=== PATIENT | female | born 1970 | race Caucasian/White ===

== ENCOUNTER → 2021-06-05 | Outpatient (CLI) | payer OTHER, BC ==
[2021-06-05 12:49] LABS: BASO % 0.7 % (0.0-1.0); EOS # 0.2 10^3/uL (0.0-0.5); EOS % 3.7 % (0.0-3.0); HEMATOCRIT 41.4 % (36.0-47.0); HEMOGLOBIN 13.4 g/dl (12.0-15.5); LYMPH # 1.5 10^3/uL (1.5-5.0); LYMPH % 34.9 % (24.0-44.0); MEAN CORPUSCULAR HEMOGLOBIN 30.4 pg (27.0-33.0); MEAN CORPUSCULAR HGB CONC 32.4 g/dl (32.0-36.5); MEAN CORPUSCULAR VOLUME 93.9 fl (80.0-96.0); MONO # 0.3 10^3/uL (0.0-0.8); MONO % 6.2 % (2.0-8.0); NEUTROPHILS # 2.4 10^3/uL (1.5-8.5); PLATELET COUNT, AUTOMATED 314 10^3/uL (150-450); RED BLOOD COUNT 4.41 10^6/uL (4.00-5.40); WHITE BLOOD COUNT 4.4 10^3/uL (4.0-10.0)
[2021-06-05 13:13] LABS: ALBUMIN 3.9 GM/DL (3.2-5.2); ALT/SGPT 21 U/L (12-78); BILIRUBIN,TOTAL 0.4 MG/DL (0.2-1.0); BLOOD UREA NITROGEN 16 MG/DL (7-18); CALCIUM LEVEL 9.3 MG/DL (8.5-10.1); CARBON DIOXIDE LEVEL 31 MEQ/L (21-32); CHLORIDE LEVEL 105 MEQ/L (98-107); CHOLESTEROL LEVEL 310 MG/DL (<200); CREATININE FOR GFR 0.75 MG/DL (0.55-1.30); GLOMERULAR FILTRATION RATE > 60.0 (>51); GLUCOSE, FASTING 90 MG/DL (70-100); HDL CHOLESTEROL 126 MG/DL (>40); LDL CHOLESTEROL 172 MG/DL (<100); NON-HDL-C 184 MG/DL; POTASSIUM SERUM 4.6 MEQ/L (3.5-5.1); SODIUM LEVEL 141 MEQ/L (136-145); TOTAL PROTEIN 7.3 GM/DL (6.4-8.2); TRIGLYCERIDES LEVEL 59 MG/DL (<150)
== END ==
LOC: M LAB 11:44
PROVIDERS: ATTEND Nurse Practitioner Family
DX: Z00.00 Encounter for general adult medical examination without abnormal findings (principal)

== ENCOUNTER → 2021-09-29 | Outpatient (CLI) | payer BC ==
[~2021-09-29] MED LIST: VITMTA PO
== END ==
LOC: M LABSMTC 09:47
PROVIDERS: ATTEND Anesthesiology
DX: Z01.812 Encounter for preprocedural laboratory examination (principal); Z20.822 Contact with and (suspected) exposure to COVID-19

== ENCOUNTER 2021-10-03 08:40 | Day surgery (SDC) | payer BC ==
[~2021-10-03] VITALS: Ht 166.4 cm; Wt 71.2 kg
[~2021-10-03 08:40] MED LIST changes: +NS 1,000 ML IV ONE
--- OUTSIDE RECORDS SUMMARY | 2021-10-03 08:44 | CCD | Continuity of Care Document ---
Author Author Emily SAEED MD Organization Unknown Address [address] [place] [address] Phone [phone] Care Team Providers Care Pipe Crew Foreman Name Role Phone Ro Barroso AUTM [phone] Problems Description No Information Available Social History Type Date Description Comments Sex Unknown Tobacco Use Start: Unknown Non-smoker, Non-drinker, Non-piper g User Smoking Status Reviewed: 08/22/21 Non-smoker, Non-drinker, Non- drug User Tobacco Use Start: Unknown Patient has never smoked Allergies and adverse reactions Description No Information Available Medications Description No Information Available Immunizations Description No Information Available Vital Signs Date Vital Result Comment 08/22/2021 10:31am BP Systolic 118 mmHg BP Diastolic 78 mmHg Height 65.50 inches 5'5.50" Weight 158.00 lb BMI (Body Mass Index) 25.9 kg/m2 BSA (Body Surface Area) 1.80 m2 Results Description No Information Available Procedures Date Code Description Status 08/22/2021 99532 Preventive Visit New 40-64 Yrs C ompleted Medical Devices Description No Information Available Encounters Type Date Location Provider Dx Diagnosis Office Visit 08/22/2021 10:15a [facility] train director Saumya Saeed MD Z0 1.419 Encntr for lute packer or applier exam (general) (routine) w/o abn findings Z12.4 Encounter for screening for malignant neoplasm of cervix Z12.39 Encounter for oth screening for malignant neoplasm of breast N39.3 Stress incontinence (female) (male) Assessments Date Code Description Provider 08/22/2021 Z01.419 Encounter for gyneco logical examination (general) (routine) without abnormal findings Saumya Saeed MD 08/22/2021 Z12.4 Encounter for screening for zoya gnant neoplasm of cervix Saumya Saeed MD 08/22/2021 Z12.39 Encounter for other screening for malignant neoplasm of breast Saumya Saeed MD 08/22/2021 N39.3 Stress incontinence (female) (ma le) Saumya Saeed MD Plan of Treatment Future Appointment(s):* 08/26/2022 2:00 pm - Saumya Saeed MD at [facility] train director 08/22/2021 - Saumya Saeed MD* Z01.419 Encounter for gynecological examination (general) (routine) without abnormal findings * Z12.4 Encounter for screening for malignant neoplasm of cervix* New Labs:* Thinprep W/Reflex HR HPV If Asc-US, Ordered: 08/22/21 * Z12.39 Encounter for other screening for malignant neoplasm of breast* New Xrays:* Mammography, Screening, Bilateral, Ordered: 08/22/21 * N39.3 Stress incontinence (female) (male) Functional Status Description No Information Available Mental Status Description No Information Available Referrals Description No Information Available
--- OUTSIDE RECORDS SUMMARY | 2021-10-03 08:44 | CCD | Continuity of Care Document ---
Author Author Emily SAEED MD Organization Unknown Address [address] [place] [address] Phone [phone] Care Team Providers Care Sales Trainer Name Role Phone Ro Barroso POSTDOCTORAL RESEARCH FELLOW AUTM [phone] Problems Description No Information Available Social History [...] BSA (Body Surface Area) 1.80 m2 Results Test Acquired Date Facility Test Result H/L Range Note Thinprep W/Reflex HR HPV If Asc-US 08/22/2021 [facility] TP Reflex HPV [facility] Normal Normal 1 TP Reflex HPV [facility] SEE IMAGE 1 SPECIME N PART A. Cervical, Endocervical, ThinPrep Pap (Juvenile Corrections Officer) CYTOLOGY HX-------- Date of Last Menstrual Period: 07/27/21 FINAL DIAGNOSIS---- INTERPRETATION: Negative for Intraepithelial Lesion or Malignancy. SPECIMEN ADEQUACY:Satisfactory for evaluation. Endocervical/transformation zone component present. ADDITIONAL FINDINGS:Atrophic pattern. Procedures Date Code Description Status 08/22/2021 93573 Preventive Visit New 40-64 Yrs C ompleted Medical Devices Description No Information Available Encounters Type Date Location Provider Dx Diagnosis Office Visit 08/22/2021 10:15a [facility] relief pharmacist Saumya Saeed MD Z0 1.419 Encntr for public area attendant exam (general) (routine) w/o abn findings Z12.4 [...] 2:00 pm - Saumya Saeed MD at [facility] relief pharmacist 08/22/2021 - Saumya Saeed MD* Z01.419 Encounter for gynecological examination (general) (routine) without abnormal findings * Z12.4 Encounter for screening for malignant neoplasm of cervix * Z12.39 Encounter for other screening for malignant neoplasm of breast* New Xrays:* Mammography, Screening, Bilateral, Ordered: 08/22/21 * N39.3 Stress incontinence (female) (male) Functional Status Description No Information Available Mental Status Description No Information Available Referrals Description No Information Available
--- OUTSIDE RECORDS SUMMARY | 2021-10-03 08:44 | CCD ---
Author Author [facility] Organization [facility] Address Unknown Phone Unavailable Care Team Providers Care Technical Support Analyst Name Role Phone Crista Estrada Unavailable PROBLEMS Type Condition ICD9-CM Code [id number] Code Onset Dates Condition S tatus W/U Status Risk SNOMED Code Notes Problem Breast lump on right side at 4 o'clock position 611.72 Active confirmed 40908402 Problem Urinary, incontinence, stress female 625.6 Act tennille confirmed 21085931 ALLERGIES Allergen (clinical drug ingredient) Drug/Non Drug Allergy do cumented on EMR Reaction Allergy Type Onset Date Status Hay Runny nose, watery eyes, wheezing Non Drug Rene rgy Active ENCOUNTERS from 1969 to 2021-09-23 Encounter Location Date Provider Diagnosis [address] [phone] [place] [address] Sep, Crista Estrada Breast mass, left N63.20 IMMUNIZATIONS Vaccine Route Administration Date Status COVID-19 dose #2 given elsewhere Unspecified ID Intradermal Dec Administered COVID-19 dose #1 given elsewhere Unspecified ID Intradermal Dec 27, 2020 Administered SOCIAL HISTORY Tobacco Use: Social History Observation Description Date Details (start date - stop date) never smoker Sex Assigned At : Social History Observation Description Sex Assigned At Unknown Language: Question Answer Notes Languages spoken: Kuwaiti Sexual Hx: Question Answer Notes Had sex in the last 12 months (vaginal, oral, or anal)? Yes LMP: 04/24/2021 Have you ever had an STD? No with Men only Use protection? No Alcohol Screening: Question Answer Notes Did you have a drink containing alcohol in the past year? Ye s Points 2 Interpretation Negative How often did you have six or more drinks on one occas ion in the past year? Never (0 points) How many drinks did you have on a typica l day when you were drinking in the past year? 1 or 2 (0 points) How often did you have a drink containing alcohol in t he past year? Two to four times a month (2 points) Tobacco Use: Question Answer Notes Are you a: never smoker REASON FOR REFERRAL No Information VITAL SIGNS Weight 161.5 lbs Sep, Weight-kg 73.26 kg Sep, Height 66 in Sep, BMI 26.06 kg/m2 Sep, Heart Rate 91 /min Sep, Respiratory Rate 18 /min Sep, Temperature 96.6 degrees Fahrenheit Sep, Oximetry 97 Sep, Blood pressure systolic 114 mm Hg Sep, Blood pressure diastolic 68 mm Hg Sep, MEDICATIONS Medication SIG (Take, Route, Frequency, Duration) Notes Start Da te End Date Status Multivitamin - 1 tablet Orally Once a day for 30 day(s) Active PROCEDURES No Information RESULTS No Results REASON FOR VISIT lump left axilla MEDICAL (GENERAL) HISTORY Type Description Date Surgical History eye surgery x 2 Surgical History right breast cyst aspriation Goals Section No Information Health Concerns No Information MEDICAL EQUIPMENT No Information MENTAL STATUS No Information FUNCTIONAL STATUS No Information ASSESSMENTS Encounter Date Diagnosis Assessment Notes Treatment Notes Treatm ent Clinical Notes Sep, Breast mass, left (ICD-10 - N63.20) Will schedule mammo; pt agrees with plan Sep, Other Total time irma ng for the patient on the day of the encounter was 20 min PLAN OF TREATMENT Treatment Notes Assessment Notes Clinical Notes Breast mass, left Will schedule mammo; pt agrees with plan Pending Tests Test Name Order Date [facility] DIAGNOSTIC BILAT MAMMO (Ultrasound if indicated) W KOMAL WW 2021-09-18 Insurance Providers Payer Name Payer Address Payer Phone Insured Name Patient Relati onship to Insured Coverage Start Date Coverage End Date [employer] PPO [address] [address] LEONELA MARIEE self
--- OUTSIDE RECORDS SUMMARY | 2021-10-03 08:44 | CCD ---
Author Author [facility] Organization [facility] Address Unknown Phone Unavailable Care Team Providers Care Plant Engineer Name Role Phone Dharmesh Ro Unavailable PROBLEMS Type Condition ICD9-CM Code [id number] Code Onset Dates Condition S tatus W/U Status Risk SNOMED Code Notes Problem Breast lump on right side at 4 o'clock position 611.72 Active confirmed 59041874 Problem Urinary, incontinence, stress female 625.6 Act tennille confirmed 12178147 ALLERGIES Allergen (clinical drug ingredient) Drug/Non Drug Allergy do cumented on EMR Reaction Allergy Type Onset Date Status Hay Runny nose, watery eyes, wheezing Non Drug Rene rgy Active ENCOUNTERS from 1970 to 2021-09-17 Encounter Location Date Provider Diagnosis [address] [phone] [place] [address] Sep, Ro Barroso IMMUNIZATIONS Vaccine Route Administration Date Status COVID-19 dose #2 given elsewhere Unspecified ID Intradermal Dec Administered COVID-19 dose #1 given elsewhere Unspecified ID Intradermal Dec 27, 2020 Administered SOCIAL HISTORY Tobacco Use: Social History Observation Description Date Details (start date - stop date) never smoker Sex Assigned At : Social History Observation Description Sex Assigned At Unknown Language: Question Answer Notes Languages spoken: Mongolian Sexual Hx: Question Answer Notes Had sex [...] REASON FOR REFERRAL No Information VITAL SIGNS No information MEDICATIONS Medication SIG (Take, Route, Frequency, Duration) [...] No Information FUNCTIONAL STATUS No Information ASSESSMENTS No Information PLAN OF TREATMENT Next Appt Details Provider Name:Crista Estrada, 2020-11 03:30:00 PM, [facility] [phone], [place], [address], Insurance Providers Payer Name Payer Address Payer Phone Insured Name Patient Relati onship to Insured Coverage Start Date Coverage End Date [employer] PPO [phone] [address] LEONELA MARIEE self
--- OUTSIDE RECORDS SUMMARY | 2021-10-03 08:44 | CCD | Continuity of Care Document ---
Author Author Emily SAEED MD Organization Unknown Address [address] [place] [address] Phone [phone] Care Team Providers Care Data Management Engineer Name Role Phone Ro Barroso AUTM [phone] Problems Description No Information Available Social History [...] Available Procedures Date Code Description Status 08/22/2021 93237 Preventive Visit New 40-64 Yrs C ompleted Medical Devices Description No Information Available Encounters Type Date Location Provider Dx Diagnosis Office Visit 08/22/2021 10:15a [facility] polytechnic registrar Saumya Saeed MD Z0 1.419 Encntr for unix consultant exam (general) (routine) w/o abn findings Z12.4 [...] - Saumya Saeed MD at [facility] polytechnic registrar 08/22/2021 - Saumya Saeed MD* Z01.419 Encounter [...]
--- OUTSIDE RECORDS SUMMARY | 2021-10-03 08:44 | CCD ---
Author Author [facility] Organization [facility] Address Unknown Phone Unavailable Care Team Providers Care Timber Treating Tank Operator Name Role Phone Crista Estrada Unavailable PROBLEMS Type Condition ICD9-CM Code [id number] Code Onset Dates Condition S tatus W/U Status Risk SNOMED Code Notes Problem Breast lump on right side at 4 o'clock position 611.72 Active confirmed 38047425 Problem Urinary, incontinence, stress female 625.6 Act tennille confirmed 29278190 ALLERGIES Allergen (clinical drug ingredient) Drug/Non Drug Allergy do cumented on EMR Reaction Allergy Type Onset Date Status Hay Runny nose, watery eyes, wheezing Non Drug Rene rgy Active ENCOUNTERS from 1970 to 2021-09-19 Encounter Location Date Provider Diagnosis [address] [phone] [place] [address] Sep, Crista Estrada IMMUNIZATIONS Vaccine Route Administration Date Status COVID-19 dose #2 given elsewhere Unspecified ID Intradermal Dec Administered COVID-19 dose #1 given elsewhere Unspecified ID Intradermal Dec 27, 2020 Administered SOCIAL HISTORY Tobacco Use: Social History Observation Description Date Details (start date - stop date) never smoker Sex Assigned At : Social History Observation Description Sex Assigned At Unknown Language: Question Answer Notes Languages spoken: Greenlandic Sexual Hx: Question Answer Notes Had sex [...] Information RESULTS No Results REASON FOR VISIT No Information MEDICAL (GENERAL) HISTORY Type Description Date Surgical History eye surgery x 2 Surgical History right breast cyst aspriation Goals Section No Information Health Concerns No Information MEDICAL EQUIPMENT No Information MENTAL STATUS No Information FUNCTIONAL STATUS No Information ASSESSMENTS No Information PLAN OF TREATMENT No Information Insurance Providers Payer Name Payer Address Payer Phone Insured Name Patient Relati onship to Insured Coverage Start Date Coverage End Date [employer] PPO [id number] [address] LEONELA MARIEE self
--- OUTSIDE RECORDS SUMMARY | 2021-10-03 08:45 | CCD ---
Author Author [facility] Organization [facility] Address Unknown Phone Unavailable Care Team Providers Care Wireless Cellular Technician Name Role Phone Pura SAEED MD Unavailable Unavailable SAEED, Pura BYRNE MD Unavailable Unavailable SAEED, L SAUMYA SMALL Unavailable Unavailable SAEED, L SAUMYA SMALL Unavailable Unavailable SAEED, L SAUMYA SMALL Unavailable Unavailable SAEED, L SAUMYA SMALL Unavailable Unavailable SAEED, Pura BYRNE MD Unavailable Unavailable SAEED, L SAUMYA SMALL Unavailable Unavailable SAEED, Pura BYRNE MD Unavailable Unavailable SAEED, L SAUMYA SMALL Unavailable Unavailable SAEED, L SAUMYA SMALL Unavailable Unavailable SAEED, L SAUMYA SMALL Unavailable Unavailable SAEED, L SAUMYA SMALL Unavailable Unavailable SAEED, L SAUMYA SMALL Unavailable Unavailable SAEED, L SAUMYA SMALL Unavailable Unavailable SAEED, Pura BYRNE MD Unavailable Unavailable SAEED, L SAUMYA SMALL Unavailable Unavailable SAEED, L SAUMYA SMALL Unavailable Unavailable SAEED, L SAUMYA SMALL Unavailable Unavailable SAEED, L SAUMYA SMALL Unavailable Unavailable SAEED, L SAUMYA SMALL Unavailable Unavailable SAEED, L SAUMYA SMALL Unavailable Unavailable SAEED, L SAUMYA SMALL Unavailable Unavailable SAEED, L SAUMYA SMALL Unavailable Unavailable SAEED, L SAUMYA SMALL Unavailable Unavailable SAEED, L SAUMYA SMALL Unavailable Unavailable SAEED, L SAUMYA SMALL Unavailable Unavailable SAEED, L SAUMYA SMALL Unavailable Unavailable SAEED, L SAUMYA SMALL Unavailable Unavailable SAEED, L SAUMYA SMALL Unavailable Unavailable SAEED, L SAUMYA MD Unavailable Unavailable SAEED, L SAUMYA MD Unavailable Unavailable SAEED, L SAUMYA MD Unavailable Unavailable SAEED, L SAUMYA MD Unavailable Unavailable SAEED, L SAUMYA MD Unavailable Unavailable SAEED, L SAUMYA MD Unavailable Unavailable SAEED, L SAUMYA MD Unavailable Unavailable SAEED, L SAUMYA MD Unavailable Unavailable SAEED, L SAUMYA MD Unavailable Unavailable SAEED, L SAUMYA MD Unavailable Unavailable SAEED, L SAUMYA MD Unavailable Unavailable SAEED, L SAUMYA MD Unavailable Unavailable SAEED, L SAUMYA MD Unavailable Unavailable SAEED, L SAUMYA MD Unavailable Unavailable SAEED, L SAUMYA MD Unavailable Unavailable Re-disclosure Warning The records that you are about to access may contain information from federally-assisted alcohol or drug abuse programs. If such information is present, then the following federally mandated warning applies: This information has been disclosed to you from records protected by federal confidentiality rules (42 CFR part 2). The federal rules prohibit you from making any further disclosure of this information unless further disclosure is expressly permitted by the written consent of the person to whom it pertains or as otherwise permitted by 42 CFR part 2. A general authorization for the release of medical or other information is NOT sufficient for this purpose. The Federal rules restrict any use of the information to criminally investigate or prosecute any alcohol or drug abuse patient.The records that you are about to access may contain highly sensitive health information, the redisclosure of which is protected by Article 27-F of the [facility] Public Health law. If you continue you may have access to information: Regarding HIV / AIDS; Provided by facilities licensed or operated by the [facility] Office of Mental Health; or Provided by the [facility] Office for People With Developmental Disabilities. If such information is present, then the following [facility] mandated warning applies: This information has been disclosed to you from confidential records which are protected by state law. State law prohibits you from making any further disclosure of this information without the specific written consent of the person to whom it pertains, or as otherwise permitted by law. Any unauthorized further disclosure in violation of state law may result in a fine or retirement sentence or both. A general authorization for the release of medical or other information is NOT sufficient authorization for further disc losure. Family History Family Member Name Family Member Gender Family Member Status Date o f Status Description Data Source(s) Unknown Male Problem [facility] ([facility]) Encounters Encounter Providers Location Date Indications Data Source(s ) Outpatient Attender: SAUMYA SAEED MD ED-IMAGH 09/24 09:11:00 AM EST - 09/24/2021 09:12:00 AM EST Z12.31 [facility] Z12.31 Patient discharged. [place] [address] [address] 09/19/2021 12:00:00 AM EST eCW1 (On license of [facility]) [place] [address] [address] 09/18/2021 12:00:00 AM EST eCW1 (On license of [facility]) [place] [address] [address] 09/17/2021 12:00:00 AM EST eCW1 (On license of [facility]) Outpatient Attender: SAUMYA [facility] [employer] mobile web application developer 10:15:00 AM EDT MEDENT ([facility] SURVEILLANCE TECHNICIAN) [place] [address] [address] 07/01/2021 12:00:00 AM EDT eCW1 (On license of [facility]) Immunizations Vaccine Date Status Description Data Source(s) COVID-19 dose #2 given elsewhere Unspecified 01/24/2021 07:4 5:00 AM EDT completed eCW1 (On license of [facility]) COVID-19 dose #2 given elsewhere Unspecified 01/24/2021 07:4 5:00 AM EDT completed eCW1 (On license of [facility]) COVID-19 dose #2 given elsewhere Unspecified 01/24/2021 07:4 5:00 AM EDT completed eCW1 (On license of [facility]) COVID-19 dose #2 given elsewhere Unspecified 01/24/2021 07:4 5:00 AM EDT completed eCW1 (On license of [facility]) COVID-19 dose #1 given elsewhere Unspecified 12/27/2020 07:4 5:00 AM EST completed eCW1 (On license of [facility]) COVID-19 dose #1 given elsewhere Unspecified 12/27/2020 07:4 5:00 AM EST completed eCW1 (On license of [facility]) COVID-19 dose #1 given elsewhere Unspecified 12/27/2020 07:4 5:00 AM EST completed eCW1 (On license of [facility]) COVID-19 dose #1 given elsewhere Unspecified 12/27/2020 07:4 5:00 AM EST completed eCW1 (On license of [facility]) COVID-19 VACCINE Moderna 12/27/2020 12:00:00 AM EST completed [facility] Vaccine Series Complete: NOThis Data was Submitted to [facility] Via MD.Voice. INFLUENZA VIRUS VACCINE QUADRIVALENT 2019- (6 MOS AN D UP) 08/24/2020 12:00:00 AM EDT completed [facility] Medications Medication Brand Name Start Date Product Form Dose Route Admi nistrative Instructions Pharmacy Instructions Status Indications Reaction Description Data Source(s) Bisacodyl 5 MG Delayed Release Oral Tablet [Dulcolax] Dulcol ax 06/24/2021 12:00:00 AM EDT ORAL active M EDENT ([facility], ) Sutab Sutab 06/24/2021 12:00:00 AM EDT active MEDENT ([facility], ) Insurance Providers Payer name Policy type / Coverage type Policy ID Covered green party ID Covered green party's relationship to weaver Policy Weaver Plan Information [facility] DIST [id number] SP [id number] [facility] [id number] SP [id number] [employer] [place] [id number] daytime caregiver employed [id number] [employer]-BS PPO 306 [id number] SP [id number] [employer] PPO 306 [id number] SP [id number] [employer] [place] PPO 302/307 [id number] SP [id number] [facility] (ms) Commercial [id number] Self [id number] [facility] (pr) Commercial [id number] Self [id number] [facility] DIST [address] SP [id number] [employer]-BS PPO 306 [id number] SP [id number] Problems, Conditions, and Diagnoses Code Display Name Description Problem Type Effective Dates Data Source(s) Z12.39 Encounter for other screening for malign ant neoplasm of breast ENCOUNTER FOR OTH SCREENING FOR MALIGNANT NEOPLASM OF BREAST Diagnosis 09:11:00 AM [facility] Surgeries/Procedures Procedure Description Date Indications Data Source(s) Diagnostic digital breast tomosynthesis, unilateral or bilateral (list separately in addition to g0204 or g0206) 09/24/2021 12:00:00 AM [facility] [address] DX MAMMO INCL CAD BI 09/24/2021 12:00:00 AM [facility] 11541 ULTRASOUND BREAST COMPLETE 09/24/2021 12:00:00 AM [facility] INITIAL PREVENTIVE MEDICINE NEW PATIENT 40-64YRS 08/22 12:00:00 AM EDT MEDENT ([facility]IDEO SURVEILLANCE TECHNICIAN) Results ID Date Data Source [id number] 09/29/2021 09:55:00 AM EST [facility] Name Value Range Interpretation Code Description Data Rosanne rce(s) Supporting Document(s) SARS-CoV-2 (COVID-19) RNA [Presence] in Respiratory specimen by LIDYA with probe detection Not Detected [facility] This lab was ordered by [facility] and reported by [employer] ID Date Data Source [id number] 09/26/2021 02:53:[address] [facility] Imaging Services Department Imaging Report [address], [place] [address] %(RAD)RES..mtdd.print.filter("line") Name: LEONELA MARIEE Carlton : 1970 Age/Sex: 51F Ordering Provider: Saumya Saeed MD Med Rec #: [id number] Reg Status: DEP REF Room #: Date of Service: 09/24/21 Report Number: [id number] cc:MARICARMEN Smiley; Saumya Saeed MD Send Report To: [id number] US/US Breast Lt Complete Reason for exam: LT BREAST LUMP Technique: Whole breast ultrasound including evaluation of all four quadrants and the retroareolar region of the breast(s) was performed. FINDINGS: A s imple-appearing cyst is seen at 10 o'clock measuring 0.3 cm x 0.2 cm x 0.4 cm. There is a hypoechoic area seen at the left axilla that is superficial that appears to be likely a cyst measuring about 0.6 cm x 0.5 cm x 0.5 cm. There is a nonenlarged lymph node at the left axilla measuring 0.8 cm x 0.4 x 1.2 cm. IMPRESSION: Small cysts at left breast. Area that appears to be a cyst superficially at the left axilla at the region of interest. Suggest a six month follow-up of the left breast axilla. OVERALL FINAL ASSESSMENT OF FINDINGS: BIRADS CLASSIFICATION: 3 DESCRIPTION: Probably Benign - Short interval follow-up suggested. REPORT SIGNATURE ON FILE Reported By: Deniz Jefferson MD <Electronically signed by Deniz Jefferson MD> 09/29/21 1222 Dictation Date/Time: 09/24/21 1106 Transcribed Date/Time: 09/26/21 1453 Disease Intervention Specialist: ANGIE Name Value Range Interpretation Code Description Data Rosanne rce(s) Supporting Document(s) ID Date Data Source [id number] 09/26/2021 02:49:[address] [facility] Imaging Services Department Imaging Report [address] [place] [address] Name: LEONELA MARIEE : 1970 Age/Sex: 51F Ordering Provider: Saumya Saeed MD [facility] Rec #: [id number] Date of Service: 09/24/21 Report Number: [id number] cc: MARICARMEN Smiley; Saumya Saeed MD Send Report To: [id number] MAMMO/SHAWN Diagnostic Marko w Darryl CAD Reason for Exam: LT BREAST LUMP Patient States Last CBE: 08-22-21 Is this a follow up exam: N Follow up to: Patient's Pina Model Lifetime risk of developing breast cancer: 12.8%. History of palpable area left axilla. Tomosynthesis was performed in addition to standard mammogram views. FINDINGS: Craniocaudal and oblique views of the breasts were obtained. The breasts are heterogeneously dense. This may lower the sensitivity of mammography. There is no dominant mass, suspicious clustered calcification, norarchitectural distortion. IMPRESSION: NO MAMMOGRAPHIC EVIDENCE OF MALIGNANCY. YEARLY SCREENING RECOMMENDED. This mammogram was performed digitally and interpreted with the aid of ICAD, an FDA- approved, computer-aided detection system. OVERALL FINAL ASSESSMENT OF BREAST COMPOSITION: BIRADS CLASSIFICATION: C DESCRIPTION: The breast(s) are heterogeneously dense, which may obscure small masses. Three dimensional automated whole breast ultrasound (ABVS) is recommended for this patient if it has not already been performed. Please Note: Advise your patient to contact their insurance company prior to scheduling additional testing, as coverage is not guaranteed based on recommendation. OVERALL FINAL ASSESSMENT OF FINDINGS: BIRADS CLASSIFICATION: 1 DESCRIPTION: NEGATIVE. REPORT SIGNATURE ON FILE 09/29/21 1222 Reported By: Deniz Jefferson MD <Electronically signed by Deniz Jefferson MD>09/29/21 1222 Dictation Date/Time: 09/24/21 1106 Transcribed Date/Time: 09/26/21 5739 Disease Intervention Specialist: ANGIE Name Value Range Interpretation Code Description Data Rosanne rce(s) Supporting Document(s) ID Date Data Source [id number] 08/22/2021 12:00:00 PM EDT MEDENT ([facility] VIDEO SURVEILLANCE TECHNICIAN) Name Value Range Interpretation Code Description Data Rosanne rce(s) Supporting Document(s) TP Reflex HPV ASCUS Laboratory test result MEDENT ([employer] VIDEO SURVEILLANCE TECHNICIAN) SPECIMEN PART------ A. Cervical, Endocervical, ThinPrep Pap (Erp Manager) CYTOLOGY HX-------- Date of Last Menstrual Period: 07/27/21 FINAL DIAGNOSIS---- INTERPRETATION: Negative for Intraepithelial Lesion or Malignancy. SPECIMEN ADEQUACY:Satisfactory for evaluation. Endocervical/transformation zone component present. ADDITIONAL FINDINGS:Atrophic pattern. TP Reflex HPV ASCUS Laboratory test result MEDENT ([employer] VIDEO SURVEILLANCE TECHNICIAN) Procedure Social History Code Duration Value Status Description Data Source(s ) Smoking 09/18/2021 12:00:00 AM EST UNK completed eCW1 ([facility]) Smoking 09/18/2021 12:00:00 AM EST UNK completed eCW1 ([facility]) Smoking 08/22/2021 12:00:00 AM EDT Non-smoker, Non-drink er, Non-drug User completed Non-smoker, Non-drinker, Non-drug User MEDENT ([facility] VIDEO SURVEILLANCE TECHNICIAN) Smoking 07/01/2021 12:00:00 AM EDT UNK completed eCW1 ([facility]) Smoking 07/01/2021 12:00:00 AM EDT UNK completed eCW1 ([facility]) Vital Signs ID Date Data Source UNK Name Value Range Interpretation Code Description Data Source(s) Body weight 161.5 [lb_av] 161.5 [lb_av] eCW1 ([facility]) Body weight 73.26 kg 73.26 kg eCW1 ([facility]) Body height 66 [in_i] 66 [in_i] eCW1 ([facility]) Body mass index (BMI) [Ratio] 26.06 kg/m2 26.06 kg/m2 eCW1 ([facility]) Heart rate 91 /min 91 /min eCW1 ([facility]) Respiratory rate 18 /min 18 /min eCW1 ([facility]) Body temperature 96.6 [degF] 96.6 [degF] eCW1 ( [facility]) Systolic blood pressure 114 mm[Hg] 114 mm[Hg] e CW1 ([facility]) Diastolic blood pressure 68 mm[Hg] 68 mm[Hg] eCW1 ([facility]) Systolic blood pressure 118 mm[Hg] 118 mm[Hg] M EDENT ([facility] VIDEO SURVEILLANCE TECHNICIAN) Diastolic blood pressure 78 mm[Hg] 78 mm[Hg] MEDENT ([facility] [facility] VIDEO SURVEILLANCE TECHNICIAN) Body height 65.50 [in_i] 65.50 [in_i] MEDENT ([facility] VIDEO SURVEILLANCE TECHNICIAN) 5'5.50" Body weight 158.00 [lb_av] 158.00 [lb_av] MEDEN T ([facility] VIDEO SURVEILLANCE TECHNICIAN) Body mass index (BMI) [Ratio] 25.9 kg/m2 25.9 k g/m2 MEDENT ([employer] VIDEO SURVEILLANCE TECHNICIAN) Body surface area Derived from formula 1.80 m2 1.80 m2 MEDENT ([employer] VIDEO SURVEILLANCE TECHNICIAN) Body weight 164.4 [lb_av] 164.4 [lb_av] eCW1 ([facility]) Body weight 74.57 kg 74.57 kg eCW1 ([facility]) Body height 66 [in_i] 66 [in_i] eCW1 ([facility]) Body mass index (BMI) [Ratio] 26.53 kg/m2 26.53 kg/m2 eCW1 ([facility]) Systolic blood pressure 108 mm[Hg] 108 mm[Hg] e CW1 ([facility]) Diastolic blood pressure 68 mm[Hg] 68 mm[Hg] eCW1 ([facility]) Systolic blood pressure 118 mm[Hg] 118 mm[Hg] M EDENT ([facility], ) Diastolic blood pressure 78 mm[Hg] 78 mm[Hg] [facility] ([facility]) Body height 65 [in_i] 65 [in_i] [facility] ([facility], ) 5'5" Body weight 164.00 [lb_av] 164.00 [lb_av] MEDEN T ([facility]) Body mass index (BMI) [Ratio] 27.3 kg/m2 27.3 k g/m2 [facility] ([facility]) [place] body weight 125 [lb_av] 125 [lb_av] MEDEN T ([facility]) Body weight 74.390 kg 74.390 kg [facility] ([facility]) Body surface area Derived from formula 1.82 m2 1.82 m2 [facility] ([facility])
[2021-10-03] MEDS ORDERED: ONDANSETRON 4MG/2ML VIAL As Ordered ONE (10:16)
[2021-10-03] MEDS ORDERED: propofoL 200 MG/20 ML VIAL As Ordered ONE ×2 (10:17→10:18)
[2021-10-03] MEDS ORDERED: LIDOCAINE 2% 100MG/5ML SDV (FOR ANES.) As Ordered ONE (10:17)
--- NOTE | 2021-10-03 10:32 | ROOR ---
Patient Name: Emily Lancaster Procedure Date: 10/03/2021 10:07 AM Date of : 1970 Age: 51 Room: [facility] Gender: Female Note Status: Finalized Procedure: Colonoscopy Indications: Screening for colorectal malignant neoplasm Providers: Mega Kwon MD Referring MD: Ro ROLON Requesting Provider: Medicines: Monitored Anesthesia Care Complications: No immediate complications. Procedure: Pre-Anesthesia Assessment: - The heart rate, respiratory rate, oxygen saturations, blood pressure, adequacy of pulmonary ventilation, and response to care were monitored throughout the procedure. The Colonoscope was introduced through the anus and advanced to the terminal ileum, with identification of the appendiceal orifice and IC valve. The colonoscopy was performed without difficulty. The patient tolerated the procedure well. The quality of the bowel preparation was good. Findings: The perianal and digital rectal examinations were normal. Mild sigmoid diverticulosis and small internal hemorrhoids. The entire examined colon appeared normal on direct and retroflexion views. Impression: - Mild sigmoid diverticulosis and small internal hemorrhoids. - The entire colon is otherwise normal on direct and retroflexion views. - No specimens collected. Recommendation: - Repeat colonoscopy in 10 years for screening purposes. Procedure Code(s): --- Professional --- 14895, Colonoscopy, flexible; diagnostic, including collection of specimen(s) by brushing or washing, when performed (separate procedure) Diagnosis Code(s): --- Professional --- Z12.11, Encounter for screening for malignant neoplasm of colon CPT copyright 2019 [employer]. All rights reserved. The codes documented in this report are preliminary and upon dean of faculty review may be revised to meet current compliance requirements. Mega Kwon MD Mega Kwon MD 10/03/2021 10:32:03 AM Electronically signed by Mega Kwon MD Number of Addenda: 0 Note Initiated On: 10/03/2021 10:07 AM Estimated Blood Loss: Estimated blood loss: none.
[2021-10-03 10:59] VITALS: BP 122/71
== END 2021-10-03 11:01 | disposition home or self-care (01) ==
LOC: M OPP 08:40
PROVIDERS: ATTEND Internal Medicine Gastroenterology
DX: Z12.11 Encounter for screening for malignant neoplasm of colon (principal); K57.30 Diverticulosis of large intestine without perforation or abscess without bleeding; K64.8 Other hemorrhoids; Z80.3 Family history of malignant neoplasm of breast; Z80.7 Family history of other malignant neoplasms of lymphoid, hematopoietic and related tissues
CPT/HCPCS: 45378; J2405